=== PATIENT | female | born 1955 | race Caucasian/White ===

== ENCOUNTER 2021-07-22 20:42 | Emergency (ER) | payer OTHER, MEDICAID ==
[~2021-07-22] VITALS: Ht 160 cm; Wt 113.4 kg
[2021-07-22] MEDS ORDERED: COZAAR 25 MG TA25 M1 PO (21:07)
[2021-07-22] MEDS ORDERED: LEVO-T100 MCG PO (21:07)
[2021-07-22] MEDS ORDERED: CELEBREX 200 M200 MG PO (21:08)
[2021-07-22] MEDS ORDERED: TOPAMAX100 MG PO (21:08)
[2021-07-22 23:38] VITALS: BP 115/70
== END 2021-07-22 23:39 | disposition home or self-care (01) ==
LOC: M.ERS 20:42
DX: S20.211A Contusion of right front wall of thorax, initial encounter (principal); S00.83XA Contusion of other part of head, initial encounter; S80.01XA Contusion of right knee, initial encounter; I10 Essential (primary) hypertension; Z98.890 Other specified postprocedural states; Z90.710 Acquired absence of both cervix and uterus; Z79.899 Other long term (current) drug therapy; W01.0XXA Fall on same level from slipping, tripping and stumbling without subsequent striking against object, initial encounter; Y93.89 Activity, other specified; Y92.89 Other specified places as the place of occurrence of the external cause; Y99.8 Other external cause status